=== PATIENT | male | born 1975 | race Caucasian/White ===

== ENCOUNTER → 2024-08-12 | Outpatient (REF) | payer OTHER ==
[~2024-08-12] MED LIST: ASPIRIN81 MG PO; FIBER LAX625 MG PO; FISH OIL 1,0001 EAC7; LISINOPRIL-HCT1 EAC1; METOPROLOL SUCC50 MG PO; OMEPRAZOLE20 MG; VITAMIN D31250 MCG
== END ==
LOC: CARD 08:00 → EDSTATUS 08-17 08:00
PROVIDERS: ATTEND Internal Medicine Gastroenterology
DX: Z01.810 Encounter for preprocedural cardiovascular examination (principal); Z12.11 Encounter for screening for malignant neoplasm of colon; I10 Essential (primary) hypertension; G47.30 Sleep apnea, unspecified; K21.9 Gastro-esophageal reflux disease without esophagitis; K76.0 Fatty (change of) liver, not elsewhere classified
CPT/HCPCS: 93005